=== PATIENT | male | born 1990 | race Caucasian/White ===

== ENCOUNTER 2017-08-11 21:39 | Emergency (ER) | payer OTHER ==
[~2017-08-11] VITALS: Ht 177.8 cm; Wt 76.1 kg
[~2017-08-11 21:39] MED LIST: CEPH-443 PO
[2017-08-11 21:54] VITALS: Ht 177.8 cm; Wt 76.1 kg
[2017-08-11] MEDS ORDERED: BACITRACIN 0.9 GM OINT TOP ONE (23:30)
[2017-08-11] MEDS ORDERED: CEPHALEXIN 500 MG CAP PO ONE (23:30)
--- NOTE | 2017-08-11 23:47 | RADRPT ---
PROCEDURE: XR Knee. CLINICAL INDICATION: Right knee pain status post fall. TECHNIQUE: AP and lateral views of the right knee were obtained. The images reviewed on a PACS [employer]. COMPARISON: None. FINDINGS: The distal femur and proximal tibia/fibula are normal in appearance. There is no fracture. The medi al and lateral compartment joint spaces are preserved. There is no abnormal calcification. There i s no joint effusion. Hoffa's fat pad is normal in appearance. There is normal appearance of the pa tellofemoral joint. The soft tissues are unremarkable. IMPRESSION: 1. Normal radiographs of the right knee. No evidence of fracture. RPTAT: HGAS .Nick Stephenson MD, MD Date Time Electronically viewed and signed by .Nick Stephenson MD, on 08/11/2017 23:47 .S/
[2017-08-12] MEDS ORDERED: MUPI22OI2 TOP (00:09)
[2017-08-12] MEDS ORDERED: CEPH-443 PO (00:09)
[2017-08-12] MEDS ORDERED: ACET1TAB40 PO (00:09)
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
== END 2017-08-12 00:56 | disposition home or self-care (01) ==
LOC: FTE 21:39
DX: S80.211A Abrasion, right knee, initial encounter (principal); V18.4XXA Pedal cycle driver injured in noncollision transport accident in traffic accident, initial encounter
CPT/HCPCS: 73560; Z7502; Z7610

== ENCOUNTER 2017-11-27 20:48 | Emergency (ER) | END 2017-11-27 21:43 | disposition home or self-care (01) ==

== ENCOUNTER 2018-09-13 22:20 | Emergency (ER) | payer OTHER ==
[~2018-09-13] VITALS: Wt 79.4 kg
[~2018-09-13 22:20] MED LIST changes: +ACET1TAB40 PO; +ACET500C5 PO; +AZIT250T PO; +BENZ-6 PO; +CETI10CA PO; +IBUP-1542 PO; +MUPI22OI2 TOP
[2018-09-14] MEDS ORDERED: CEFTRIAXONE 250 MG INJ IM ONE (01:00)
[2018-09-14] MEDS ORDERED: AZITHROMYCIN 250 MG TAB PO ONE (01:00)
[2018-09-14] MEDS ORDERED: CIPR500T4 PO (01:48)
[2018-09-14 02:09] VITALS: BP 118/80; PULSE 67; RESP 18
--- NOTE | 2018-09-14 02:19 | ERD ---
ER Documentation Chief Complaint Chief Complaint DYSURIA X'S 3 DAYS HPI 28-year-old male presenting with dysuria for 3 days. Patient states he has noticed no new sexual partners and no history of STDs in the past. Patient states he has had a mild discharge from the urethra. He has no testicular swelling or pain. No abdominal pain. Denies medical problems. Surgical history ortho surgery. Social history smokes marijuana. ROS All systems reviewed and are negative except as per history of present illness. Medications Home Meds Active Scripts Ciprofloxacin Hcl* (Ciprofloxacin Hcl*) 500 Mg Tablet, 500 MG PO BID for 7 Days, TAB Prov:ELIZABETH PERSON PA-C 09/14/18 Acetaminophen* (Tylophen*) 500 Mg Capsule, 1 CAP PO Q6H PRN for PAIN AND OR ELEVATED TEMP, #20 CAP Prov:CHARITO MATA NP 11/27/17 Ibuprofen* (Motrin*) 600 Mg Tab, 600 MG PO Q6H PRN for PAIN AND OR ELEVATED TEMP, #30 TAB Prov:CHARITO MATA NP 11/27/17 Cetirizine Hcl* (Zyrtec*) 10 Mg Capsule, 10 MG PO DAILY, #30 TAB.CHEW Prov:CHARITO MATA NP 11/27/17 Benzonatate* (Tessalon Perle*) 100 Mg Capsule, 100 MG PO Q8H PRN for COUGH, #20 CAP Prov:CHARITO MATA NP 11/27/17 Azithromycin* (Zithromax*) 250 Mg Tablet, 250 MG PO .OLLIE DIRECTED, #6 TAB TAKE 500 MG (2 TABS) THE FIRST DAY THEN 250 MG (1 TAB) DAYS 2-5 Prov:CHARITO MATA NP 11/27/17 Mupirocin* (Bactroban*) 2% -22 Gram Oint...g., 1 APPLIC TOP BID for 7 Days, EA Prov:KIRT SMILEY NP 08/12/17 Acetaminophen with Codeine (Acetaminophen-Cod #3 Tablet) 1 Each Tablet, 1 TAB PO Q6H PRN for PAIN, #7 TAB Prov:KIRT SMILEY NP 08/12/17 Cephalexin* (Keflex*) 500 Mg Capsule, 500 MG PO QID for 5 Days, CAP Prov:KIRT SMILEY UNIT CONTROL CLERK 08/12/17 Cephalexin* (Keflex*) 500 Mg Capsule, 500 MG PO QID for 5 Days, CAP Prov:KIRT SMILEY UNIT CONTROL CLERK 04/24/16 Allergies Allergies: Coded Allergies: No Known Drug Allergies (Verified Allergy, 03/27/11) PMhx/Soc Medical and Surgical Hx: pt denies Medical Hx, pt denies Surgical Hx History of Surgery: No Anesthesia Reaction: No Hx Neurological Disorder: No Hx Respiratory Disorders: No Hx Cardiac Disorders: No Hx Psychiatric Problems: No Hx Miscellaneous Medical Probl: No Hx Alcohol Use: No Hx Substance Use: No Hx Tobacco Use: No Smoking Status: Never smoker FmHx Family History: No diabetes, No coronary disease, No other Physical Exam Vitals Vital Signs Date Temp Pulse Resp B/P (MAP) Pulse Ox O2 O2 Flow FiO2 Time Delivery Rate 09/14/18 98.1 67 18 118/80 99 Room Air 02:09 (93) 09/13/18 97.0 81 20 147/88 98 22:27 (107) Physical Exam GENERAL: The patient is well-appearing, well-nourished, in no acute distress CHEST: Clear to auscultation bilaterally. There are no rales, wheezes or rhonchi. HEART: Regular rate and rhythm. No murmurs, clicks, rubs or gallops. No S3 or S4. ABDOMEN:Soft, nontender and nondistended. Good bowel sounds. No rebound or guarding. No gross peritonitis. No gross organomegaly or masses. No Chua sign or McBurney point tenderness. BACK: No midline or flank tenderness. Results 24 hrs Laboratory Tests Test 09/14/18 01:07 Bedside Urine pH (LAB) 5.5 Bedside Urine Protein (LAB) Trace Bedside Urine Glucose (UA) Negative Bedside Urine Ketones (LAB) Trace Bedside Urine Blood Trace-lysed Bedside Urine Nitrite (LAB) Negative Bedside Urine Leukocyte Esterase (L 1+ Current Medications Medications Dose Sig/Sharon Start Time Status Last (Trade) Ordered Route PRN Stop Time Admin Dose Reason Admin 1,000 mg ONCE ONCE 09/14/18 DC 09/14/18 Azithromycin PO 01:00 01:04 (Zithromax) 09/14/18 01:01 Ceftriaxone 250 mg ONCE ONCE 09/14/18 DC 09/14/18 Sodium IM 01:00 01:05 (Rocephin) 09/14/18 01:01 Procedures/MDM ER course: Urine sent for STD screening. Urinalysis shows leukocytes. 1 g of azithromycin and 250 mg of Rocephin given in ED. MDM: 28-year-old male presenting with dysuria. Patient may have STD however there is leukocytes noted on urinalysis so we will treat with antibiotics. Patient's urine was sent for culture screening. She was told to refrain from intercourse until culture is completed to determine if cough and also needs to receive treatment. Patient was told symptoms change or worsen to immediately return to the ER. A low suspicion for testicular or penile abnormalities. A low suspicion for acute abdomen. Patient is discharged stricter precautions and told to follow-up with primary care within 1-2 days for close evaluation. Patient is told symptoms change or worsen to return sooner. All questions answered at discharge Departure Diagnosis: Primary Impression: Dysuria Condition: Stable Patient Instructions: Dysuria Referrals: [facility] (PCP) Additional Instructions: FOLLOW UP WITH YOUR PRIMARY CARE PHYSICIAN TOMORROW.Return to this facility if you are not improving as expected. ELIZABETH PERSON PA-C Sep 14, 2018 02:19
== END 2018-09-14 02:09 | disposition home or self-care (01) ==
LOC: FTE 22:20
DX: R30.0 Dysuria (principal)
CPT/HCPCS: 81003; 87591; 96372; J0696; Z7502; Z7610

== ENCOUNTER 2019-05-28 15:40 | Emergency (ER) | payer OTHER ==
[~2019-05-28] VITALS: Ht 177.8 cm; Wt 84.0 kg
[~2019-05-28 15:40] MED LIST changes: +ACYC800T5 PO; +CIPR500T4 PO; +HDRP454O TOP; +NAPR-985 PO
[2019-05-28 16:17] VITALS: BP 128/74; PULSE 78; RESP 18; Ht 177.8 cm; Wt 84.0 kg
[2019-05-28] MEDS ORDERED: CEFTRIAXONE 250 MG INJ IM ONE (17:30)
[2019-05-28] MEDS ORDERED: AZITHROMYCIN 500 MG TAB PO ONE (17:30)
== END 2019-05-28 18:07 | disposition home or self-care (01) ==
LOC: FTE 15:40
DX: R30.0 Dysuria (principal)
CPT/HCPCS: 81003; 87591; 96372; J0696; Z7502; Z7610